=== PATIENT | male | born 1960 | race American Indian/Alaskan Native ===

== ENCOUNTER 2016-06-03 17:45 | Inpatient (IN) | payer BC ==
[2016-06-03] MEDS ORDERED: cefTRIAXone 1 gm 100 ML IVPB STA (18:46)
[2016-06-03] MEDS ORDERED: Azithromycin 500MG/NS 250ml 250 ML IVPB STA (18:46)
[2016-06-03 18:50] LABS: ADD MANUAL DIFF? NO; BASO # 0.01 K/mm3 (0.0-2.0); BASO % 0.1 % (0.0-3.0); GRAN # 11.56 (1.4-6.5); GRAN % 87.9 % (50.0-68.0); HEMATOCRIT 41.6 % (42.0-52.0); LYMPH # 0.8 (1.2-3.4); LYMPH % 5.7 % (22.0-35.0); MEAN CELL VOLUME 91.6 fL (80.0-105.0); MEAN CORPUSCULAR HEMOGLOBIN 32.2 pg (25.0-35.0); MEAN CORPUSCULAR HGB CONC 35.1 g/dl (31.0-37.0); MEAN PLATELET VOLUME 9.1 fl (7.0-11.0); MONO # 0.8 (0.1-0.6); MONO % 6.3 % (1.0-6.0); PLATELET COUNT 185 10^3/uL (120.0-450.0); RED CELL DISTRIBUTION WIDTH 13.6 % (11.5-14.5); WHITE BLOOD COUNT 13.2 10^3/ul (4.5-11.0)
[2016-06-03 18:54] LABS: VENOUS BLOOD GAS BASE EXCESS -0.2 mmol/L (0.0-2.0); VENOUS BLOOD PH 7.39 (7.32-7.43)
[2016-06-03 18:59] LABS: ALB/GLOB RATIO 1.1 (1.1-1.8); BILIRUBIN,TOTAL 0.5 mg/dL (0.2-1.3); CALCIUM 8.6 mg/dL (8.4-10.5); POTASSIUM 3.8 mmol/L (3.6-5.0); TOTAL PROTEIN 7.9 g/dL (5.8-8.3)
[2016-06-03 19:10] LABS: TROPONIN I 0.04 ng/mL
--- NOTE | 2016-06-03 19:10 | ED PDOC ---
Arrival/HPI - General Chief Complaint: Shortness Of Breath Time Seen by Provider: 06/03/16 17:56 Historian: Patient - History of Present Illness Narrative History of Present Illness (Text): 06/03/16 19:00 A 56 year old male presents to the emergency room complaining of a cough for the past 2 days. Patient notes clear phlegm. pt c/o of chest pain with coughing. subjective fevers at home PMD: Dr. Trevizo 06/03/16 20:17 Time/Duration: Other (2 days) Symptom Onset: Sudden Symptom Course: Unchanged Activities at Onset: Rest Modifying Factors (Text): none Context: Home Associated Symptoms (Text): none Past Medical History - Provider Review Nursing Documentation Reviewed: Yes - Past History Past History: No Previous - Infectious Disease Hx of Infectious Diseases: None - Tetanus Immunization Tetanus Immunization: Unknown - Cardiac Hx Cardiac Disorders: No - Pulmonary Hx Respiratory Disorders: No - Neurological Hx Neurological Disorder: No - HEENT Hx HEENT Disorder: No - Renal Hx Renal Disorder: No - Endocrine/Metabolic Hx Endocrine Disorders: No - Hematological/Oncological Hx Blood Disorders: No - Integumentary Hx Dermatological Disorder: No - Musculoskeletal/Rheumatological Hx Musculoskeletal Disorders: Yes Hx Arthritis: Yes Hx Falls: Yes - Gastrointestinal Hx Gastrointestinal Disorders: No - Genitourinary/Gynecological Hx Genitourinary Disorders: No - Psychiatric Hx Psychophysiologic Disorder: No Hx Substance Use: No - Past Surgical History Past Surgical History: Non-Contributing - Surgical History Other/Comment: Bilateral knee replacement. L shoulder - Anesthesia Hx Anesthesia: Yes Hx Anesthesia Reactions: No Hx Malignant Hyperthermia: No - Suicidal Assessment Feels Threatened In Home Enviroment: No Family/Social History - Physician Review Nursing Documentation Reviewed: Yes Family/Social History: No Known Family HX Smoking Status: Heavy Smoker > 10 Cigarettes Daily Hx Alcohol Use: Yes Hx Substance Use: No Hx Substance Use Treatment: No Allergies/Home Meds Allergies/Adverse Reactions: Allergies PORK Allergy (Verified 12/29/15 16:54) NAUSEA Review of Systems - Physician Review All systems were reviewed & negative as marked: Yes - Review of Systems Respiratory: Cough (painful), Other (phlegm) Cardiovascular: absent: Chest Pain Physical Exam Vital Signs Reviewed: Yes Vital Signs Temp Pulse Resp BP Pulse Ox 06/03/16 22:54 99.7 F H 84 18 136/74 92 L 06/03/16 21:00 88 20 133/59 L 96 06/03/16 19:12 102.2 F H 85 24 144/51 L 90 L 06/03/16 18:06 103.6 F H 90 24 143/52 L 90 L Temperature: Febrile Blood Pressure: Hypotensive Pulse: Regular Respiratory Rate: Normal Appearance: Positive for: Well-Appearing, Non-Toxic, Comfortable Pain Distress: None Mental Status: Positive for: Alert and Oriented X 3 - Systems Exam Head: Present: Atraumatic, Normocephalic Pupils: Present: PERRL Extroacular Muscles: Present: EOMI Conjunctiva: Present: Normal Mouth: Present: Moist Mucous Membranes Neck: Present: Normal Range of Motion Respiratory/Chest: Present: Clear to Auscultation, Good Air Exchange. No: Respiratory Distress, Accessory Muscle Use Cardiovascular: Present: Regular Rate and Rhythm, Normal S1, S2. No: Murmurs Abdomen: Present: Normal Bowel Sounds. No: Tenderness, Distention, Peritoneal Signs Upper Extremity: Present: Normal Inspection. No: Cyanosis, Edema Lower Extremity: Present: Normal Inspection. No: Edema Neurological: Present: GCS=15, CN II-XII Intact, Speech Normal Skin: Present: Warm, Dry, Normal Color. No: Rashes Psychiatric: Present: Alert, Oriented x 3, Normal Insight, Normal Concentration Medical Decision Making ED Course and Treatment: 06/03/16 19:11 Impression: 56 year old male with a cough. Differential Diagnosis included but are not limited to: r/o pna. Plan: -- EKG -- Labs -- Reassess and disposition Prior Visits: Notes and results from previous visits were reviewed. Progress Notes: EKG: Ordered, reviewed, and independently interpreted the EKG. Rate : 88 BPM Rhythm : NSR Interpretation : Non specific ST/T changes Comparison : Changes are new from EKG 12/31/15 06/03/16 20:13 Chest X-ray read by me shows bilateral infiltrates as read by me Dr. Echeverria covering for Dr. Trevizo accepts patient. 06/03/16 20:17 - Lab Interpretations Lab Results: 06/03/16 18:43 06/03/16 18:43 Lab Results 06/03/16 18:45: Influenza Typ A,B (EIA) Negative for flu a/b 06/03/16 18:43: WBC 13.2 H, RBC 4.54, Hgb 14.6, Hct 41.6 L, MCV 91.6, MCH 32.2, MCHC 35.1, RDW 13.6, Plt Count 185, MPV 9.1, Gran % 87.9 H, Lymph % (Auto) 5.7 L , [place] % (Auto) 6.3 H, Eos % (Auto) 0.0 L, Baso % (Auto) 0.1, Gran # 11.56 H, Lymph # 0.8 L, [place] # 0.8 H, Eos # 0.0, Baso # 0.01, Sodium 129 L, Potassium 3.8 , Chloride 96 L, Carbon Dioxide 24, Anion Gap 13, BUN 17, Creatinine 1.6 H, Est GFR ( Amer) 54, Est GFR (Non-Af Amer) 45, Random Glucose 115 H, Calcium 8.6, Total Bilirubin 0.5, AST 37, ALT 35, Alkaline Phosphatase 80, Lactate Dehydrogenase 711 H, Total Creatine Kinase 390 H, CK-MB (CK-2) 1.6, CK-MB (CK-2 ) % Cancelled, Troponin I 0.04, Total Protein 7.9, Albumin 4.2, Globulin 3.7, Albumin/Globulin Ratio 1.1 06/03/16 18:30: pO2 59 H, VBG pH 7.39, VBG pCO2 41.0, VBG HCO3 24.8, VBG Total CO2 26.1, VBG O2 Sat (Calc) 94.7 H, VBG Base Excess -0.2 L, VBG Potassium 3.7, Glucose 115 H, Lactate 0.9, FiO2 21.0, Sodium 130.0 L, Chloride 98.0, Venous Blood Potassium 3.7 I have reviewed the lab results: Yes - RAD Interpretation Radiology Orders: 06/03/16 18:46 CHEST PORTABLE [RAD] Stat - EKG Interpretation Interpreted by ED Physician: Yes Type: 12 lead EKG - Medication Orders Current Medication Orders: Acetaminophen (Tylenol 325mg Tab) 650 mg PO Q4H PRN PRN Reason: fever Last Admin: 06/04/16 09:41 Dose: 650 MG MAR Pain/Vitals Document 06/04/16 09:41 [facility] (Rec: 06/04/16 09:41 [facility] [id number]) Pain Reassessment Is This A Pain ReAssessment? No Vitals Temperature (97.6 F-99.6 F) 99.7 F Temperature Source Oral Acetaminophen (Tylenol 325mg Tab) 650 mg PO Q4H PRN PRN Reason: Pain, Mild (1-3) Albuterol/Ipratropium (Duoneb 3 Mg/0.5 Mg (3 Ml) Ud) 3 ml IH [id number] [facility] Last Admin: 06/04/16 07:39 Dose: 3 ML Famotidine (Pepcid) 40 mg PO HS [facility] Last Admin: 06/03/16 23:10 Dose: 40 MG Ceftriaxone Sodium (Rocephin 1 Gram Ivpb) 100 mls @ 100 mls/hr IVPB DAILY ALEX PRN Reason: Protocol Last Admin: 06/04/16 09:42 Dose: 100 MLS/HR eMAR Start Stop Document 06/04/16 09:42 [facility] (Rec: 06/04/16 09:42 [facility] [id number]) Intravenous Solution Start Date 06/04/16 Start Time 09:42 End Date 06/04/16 End time 09:42 Total Infusion Time 0 Azithromycin (Zithromax 500mg In Ns) 250 mls @ 167 mls/hr IVPB DAILY ALEX PRN Reason: Protocol Lisinopril (Zestril) 10 mg PO DAILY [facility] Last Admin: 06/04/16 09:38 Dose: Not Given Non-Admin Reason: BP Parameters Not Met MAR Pulse and Blood Pressure Document 06/04/16 09:38 [facility] (Rec: 06/04/16 09:38 [facility] [id number]) Pulse Pulse Rate (60-90) 62 Blood Pressure Blood Pressure (100/60-150/90) 96/67 Discontinued Medications Acetaminophen (Tylenol 325mg Tab) Confirm Administered Dose 975 mg .ROUTE .STK- MED ONE Stop: 06/03/16 18:47 Last Admin: 06/03/16 18:50 Dose: 975 MG Acetaminophen (Tylenol 325mg Tab) 650 mg PO Q4H PRN PRN Reason: Pain, moderate (4-7) Azithromycin (Zithromax 500mg In Ns) 250 mls @ 167 mls/hr IVPB STAT STA PRN Reason: Protocol Stop: 06/03/16 20:15 Last Admin: 06/03/16 20:03 Dose: 167 MLS/HR eMAR Start Stop Document 06/03/16 20:03 [facility] (Rec: 06/03/16 20:03 EBON[facility] [id number]) Intravenous Solution Start Date 06/03/16 Start Time 20:03 End Date 06/03/16 End time 21:03 Total Infusion Time 60 Ceftriaxone Sodium (Rocephin 1 Gram Ivpb) 100 mls @ 200 mls/hr IVPB STAT STA PRN Reason: Protocol Stop: 06/03/16 19:15 Last Admin: 06/03/16 19:15 Dose: 200 MLS/HR eMAR Start Stop Document 06/03/16 19:15 SRE (Rec: 06/03/16 19:15 SRE [id number]) Intravenous Solution Start Date 06/03/16 Start Time 19:15 End Date 06/03/16 End time 20:00 Total Infusion Time 45 - Scribe Statement The provider has reviewed the documentation as recorded by the Raul Clifton training under Best Liu All medical record entries made by the Raul were at my direction and personally dictated by me. I have reviewed the chart and agree that the record accurately reflects my personal performance of the history, physical exam, medical decision making, and the department course for this patient. I have also personally directed, reviewed, and agree with the discharge instructions and disposition. Disposition/Present on Arrival - Present on Arrival Any Indicators Present on Arrival: No History of DVT/PE: No History of Uncontrolled Diabetes: No Urinary Catheter: No History of Decub. Ulcer: No History Surgical Site Infection Following: None - Disposition Have Diagnosis and Disposition been Completed?: Yes Diagnosis: Pneumonia Disposition: HOSPITALIZED Disposition Time: 20:17 Patient Problems: Current Active Problems Problem Status Diagnosed Pain and swelling of right wrist Acute Pneumonia Acute Swelling of joint, hand, right Acute Condition: FAIR
[2016-06-04] MEDS: Albuterol-Ipratrop 3 mg / 0.5 (3 ml) UD IH SCH ×3 (02:32→19:42)
[2016-06-04 02:55] VITALS: BMI 329959.7
[2016-06-04 07:10] LABS: CALCIUM 8.4 mg/dL (8.4-10.5); MEAN CELL VOLUME 91.5 fL (80.0-105.0); MEAN CORPUSCULAR HEMOGLOBIN 31.7 pg (25.0-35.0); MEAN CORPUSCULAR HGB CONC 34.6 g/dl (31.0-37.0); MEAN PLATELET VOLUME 8.9 fl (7.0-11.0); POTASSIUM 3.6 mmol/L (3.6-5.0); RED CELL DISTRIBUTION WIDTH 13.8 % (11.5-14.5)
[2016-06-04] MEDS: cefTRIAXone 1 gm 100 ML IVPB SCH (09:42)
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
--- NOTE | 2016-06-04 10:49 | CARD ---
APPROVED REPORT EKG Measurement Heart [id number] NM [id number] <Conclusion> Normal sinus rhythm Incomplete right bundle branch block Left anterior fascicular block Minimal voltage criteria for LVH, may be normal variant Nonspecific T wave abnormality Abnormal ECG
[2016-06-04] MEDS: Azithromycin 500MG/NS 250ml 250 ML IVPB SCH (11:00)
[2016-06-04] MEDS ORDERED: Promethazine DM 6.25 mg-15 mg/5 ml Syrup PO STA (14:00)
[2016-06-04] MEDS ORDERED: Benzocaine/Menthol (Cepacol) Lozenge MT PRN (20:14)
--- NOTE | 2016-06-04 20:40 | CP.PCM.CON ---
History of Present Illness - History of Present Illness History of Present Illness: Infectious Disease Consultation: June 04, 2016 56 yo AA male with presentation of SOB and worsening cough. Subjective fevers and chills at home. He complains of lower chest and back pain. Chest X-ray is displaying pneumonic process in the bilateral lower lobes. He is ambulatory. He is an active tobacco user at 1 PPD. His temperatures have been as high as 103.6 F. He does state that he feels better since hospitalized. PMHx: Patient states only history of arthritis. Denies Hypertension and Diabetes Mellitus PSHx: bilateral knee replacements Allergies: Pork Social Hx: Tobacco use 1 PPD over 20 years, Social EtOH, no illicit drugs Active Medications Acetaminophen (Tylenol 325mg Tab) 650 mg PO Q4H PRN PRN Reason: fever Last Admin: 06/04/16 17:39 Dose: 650 mg Acetaminophen (Tylenol 325mg Tab) 650 mg PO Q4H PRN PRN Reason: Pain, Mild (1-3) Albuterol/Ipratropium (Duoneb 3 Mg/0.5 Mg (3 Ml) Ud) 3 ml IH [id number] [facility] Last Admin: 06/04/16 19:42 Dose: 3 ml Benzocaine/Menthol (Cepacol Sore Throat) 1 rashel MT Q2H PRN PRN Reason: Sore Throat Famotidine (Pepcid) 40 mg PO HS [facility] Last Admin: 06/03/16 23:10 Dose: 40 mg Ceftriaxone Sodium (Rocephin 1 Gram Ivpb) 100 mls @ 100 mls/hr IVPB DAILY [facility] PRN Reason: Protocol Last Admin: 06/04/16 09:42 Dose: 100 mls/hr Azithromycin (Zithromax 500mg In Ns) 250 mls @ 167 mls/hr IVPB DAILY ALEX PRN Reason: Protocol Last Admin: 06/04/16 11:00 Dose: 167 mls/hr Lisinopril (Zestril) 10 mg PO DAILY [facility] Last Admin: 06/04/16 09:38 Dose: Not Given Methylprednisolone (Solu-Medrol) 20 mg IVP Q12 [facility] Nicotine (Nicoderm Cq) 1 patch TD DAILY [facility] Last Admin: 06/04/16 14:21 Dose: 1 patch Promethazine HCl/Dextromethorphan (Phenergan Dm Syrup) 5 ml PO TID PRN PRN Reason: Cough Family Hx: none given ROS: No fevers, chills, nausea, vomiting, diarrhea, headaches, dizziness, chest pain , abdominal pain, melena, hematuria, hematemesis, hematochezia, depression, anxiety. Past Patient History - Infectious Disease Hx of Infectious Diseases: None - Tetanus Immunizations Tetanus Immunization: Unknown - Past Social History Smoking Status: Heavy Smoker > 10 Cigarettes Daily - CARDIAC Hx Cardiac Disorders: No - PULMONARY Hx Respiratory Disorders: No - NEUROLOGICAL Hx Neurological Disorder: No - HEENT Hx HEENT Problems: No - RENAL Hx Chronic Kidney Disease: No - ENDOCRINE/METABOLIC Hx Endocrine Disorders: No - HEMATOLOGICAL/ONCOLOGICAL Hx Blood Disorders: No - INTEGUMENTARY Hx Dermatological Problems: No - MUSCULOSKELETAL/RHEUMATOLOGICAL Hx Musculoskeletal Disorders: Yes Hx Arthritis: Yes Hx Falls: Yes - GASTROINTESTINAL Hx Gastrointestinal Disorders: No - GENITOURINARY/GYNECOLOGICAL Hx Genitourinary Disorders: No - PSYCHIATRIC Hx Psychophysiologic Disorder: No Hx Substance Use: No - SURGICAL HISTORY Other/Comment: Bilateral knee replacement. L shoulder - ANESTHESIA Hx Anesthesia: Yes Hx Anesthesia Reactions: No Hx Malignant Hyperthermia: No Meds Allergies/Adverse Reactions: Allergies Allergy/AdvReac Type Severity Reaction Status Date / Time PORK Allergy NAUSEA Verified 12/29/15 16:54 - Medications Medications: Current Medications Acetaminophen (Tylenol 325mg Tab) 650 mg PO Q4H PRN PRN Reason: fever Last Admin: 06/04/16 17:39 Dose: 650 mg Acetaminophen (Tylenol 325mg Tab) 650 mg PO Q4H PRN PRN Reason: Pain, Mild (1-3) Albuterol/Ipratropium (Duoneb 3 Mg/0.5 Mg (3 Ml) Ud) 3 ml IH [id number] [facility] Last Admin: 06/04/16 07:39 Dose: 3 ml Famotidine (Pepcid) 40 mg PO HS [facility] Last Admin: 06/03/16 23:10 Dose: 40 mg Ceftriaxone Sodium (Rocephin 1 Gram Ivpb) 100 mls @ 100 mls/hr IVPB DAILY ALEX PRN Reason: Protocol Last Admin: 06/04/16 09:42 Dose: 100 mls/hr Azithromycin (Zithromax 500mg In Ns) 250 mls @ 167 mls/hr IVPB DAILY ALEX PRN Reason: Protocol Last Admin: 06/04/16 11:00 Dose: 167 mls/hr Lisinopril (Zestril) 10 mg PO DAILY [facility] Last Admin: 06/04/16 09:38 Dose: Not Given Nicotine (Nicoderm Cq) 1 patch TD DAILY [facility] Last Admin: 06/04/16 14:21 Dose: 1 patch Promethazine HCl/Dextromethorphan (Phenergan Dm Syrup) 5 ml PO TID PRN PRN Reason: Cough Physical Exam - Constitutional Appears: Non-toxic, No Acute Distress - Head Exam Head Exam: ATRAUMATIC, NORMOCEPHALIC - Eye Exam Eye Exam: EOMI, PERRL Pupil Exam: NORMAL ACCOMODATION, PERRL - ENT Exam ENT Exam: Mucous Membranes Moist, Normal External Ear Exam, TM's Normal Bilaterally - Neck Exam Neck exam: Positive for: Full Rom, Normal Inspection - Respiratory Exam Respiratory Exam: Decreased Breath Sounds, NORMAL BREATHING PATTERN. absent: Rales, Rhonchi, Wheezes Additional comments: decreased breath sounds diffusely in lung worst in lower lung. - Cardiovascular Exam Cardiovascular Exam: REGULAR RHYTHM, RRR, +S1, +S2 - GI/Abdominal Exam GI & Abdominal Exam: Normal Bowel Sounds, Soft. absent: Distended, Tenderness - Extremities Exam Extremities exam: Positive for: full ROM, normal inspection - Neurological Exam Neurological exam: Alert, CN II-XII Intact, Oriented x3 - Psychiatric Exam Psychiatric exam: Normal Affect, Normal Mood - Skin Skin Exam: Intact, Normal Color Results - Vital Signs Recent Vital Signs: Last Vital Signs Temp 102.2 F H 06/04/16 17:39 Pulse 65 06/04/16 14:00 Resp 18 06/04/16 11:52 BP 115/70 06/04/16 11:52 Pulse Ox 100 06/04/16 05:58 - Labs Result Diagrams: 06/04/16 06:20 06/04/16 06:20 Labs: Laboratory Results - last 24 hr 06/04/16 06:20 WBC 11.0 RBC 4.48 Hgb 14.2 Hct 41.0 L MCV 91.5 MCH 31.7 MCHC 34.6 RDW 13.8 Plt Count 177 MPV 8.9 Sodium 137 Potassium 3.6 Chloride 101 Carbon Dioxide 27 Anion Gap 13 BUN 19 Creatinine 1.6 H Est GFR ( Amer) 54 Est GFR (Non-Af Amer) 45 Random Glucose 101 Calcium 8.4 TSH 3rd Generation 2.76 Assessment & Plan - Assessment and Plan (Free Text) Assessment: 56 yo AA male with cough and high grade fevers started on Rocephin and Azithromycin for antibiotic treatment. The patient has signs of pneumonia in the bases bilaterally. He is complaining of lower chest pain and mid level back pain especially after fits of coughing. The patient had cultures sent. Would sent sputum cultures as well. If fevers persist, will escalate antibiotics to Vancomycin and Zosyn over Rocephin. Thank you for allowing me to participate in the care of the patient, we will follow with you.
[2016-06-04] MEDS: MethylPREDNISolone 40 mg Vial IVP SCH (21:01)
--- NOTE | 2016-06-04 21:03 | CON ---
DATE: 06/04/2016 REFERRING PHYSICIAN: Dr. Echeverria. REASON FOR CONSULT: Pulmonary infiltrate, cough, shortness of breath, loud snoring. HISTORY OF PRESENT ILLNESS: This is a 56-year-old gentleman with past medical history significant fo r hypertension, obesity, history of degenerative joint disease, active smoker, presented to Emergency Room with cough, shortness of breath. Found to have abnormal chest x-ray, treated with antibiotics and bronchodilators. Feels a little better. He admits to have loud snoring, daytime sleepy and tire d. No nausea, no vomiting, no diarrhea. No leg pain or leg swelling. PAST MEDICAL HISTORY: Hypertension, history of degenerative joint disease, and obesity. ALLERGIES: None known, other than food allergy from pork. SOCIAL HISTORY: He is a smoker. Denied any alcohol use. FAMILY HISTORY: No significant cardiopulmonary disease reported. MEDICATIONS: He is on DuoNeb q. 6 hours, NicoDerm patch daily, Pepcid 40 mg daily, promethazine DM 3 times a day p.r.n., Rocephin 1 g daily, Tylenol p.r.n. basis, Zestril 10 mg daily, Zithromax 500 mg daily. REVIEW OF SYSTEMS: No headache, no rhinitis. Has a cough, shortness of breath, and sore throat. No nausea, no vomiting. No diarrhea. No leg pain or leg swelling. Has loud snoring, daytime sleepy a nd tired. PHYSICAL EXAMINATION: Sitting up in a chair. T-max is 102, heart rate 65, respiratory rate is 20, blood pressure 115/60, pulse ox 99% on room air. HENT: Moist mucous membranes. Crowded airway. Mallampati score is 4. NECK: Supple. No JVD. LUNGS: Has a base with some crackles. Prolonged expiratory phase. HEART: S1 and S2. ABDOMEN: Soft, nontender. No organomegaly. EXTREMITIES: No edema. NEUROLOGICALLY: Awake, alert. Follows simple commands. Laboratory data shows hemoglobin 14.2, hematocrit 41.0, WBC 11.0, platelet is 177. MICROBIOLOGY: Blood culture has been negative. Chest x-ray done from ER shows bibasilar infiltrate suspicious for pneumonia. IMPRESSION AND PLAN: Community-acquired pneumonia with some component of chronic obstructive lung di sease, history of hypertension, obesity, may have a sleep apnea syndrome. Agree with Dr. Echeverria with the present management. Continue antibiotics, inhaled bronchodilator. Ke ep head 45 degrees. Sleep apnea precaution. Careful with sedation. Gastric prophylaxis. DVT proph ylaxis. Will add Cepacol lozenges, Nicoderm patch. Will need PFT as outpatient, and attended sleep study as outpatient. Thank you, and will follow with you. Brianne Savage MD cc: [id number] TT: 06/04/2016 21:02:59 Confirmation # [id number] Dictation # [id number]
[2016-06-04] MEDS: Promethazine DM 6.25 mg-15 mg/5 ml Syrup PO PRN (22:06)
--- NOTE | 2016-06-05 08:06 | HP ---
CHIEF COMPLAINT: Shortness of breath, coughing. HISTORY OF PRESENT ILLNESS: The patient is a 56-year-old male, private doctor Dr. Gustavo Trevizo. Came to the Emergency Room complaining about coughing for the past 2 days. The patient noticed clear phlegm. The patient complained of chest pain with coughing, subjective feverish feeling at home. No nausea, vomiting, diarrhea. No headache, no dizziness. No hematuria, no hematochezia. No chest pain. PAST MEDICAL HISTORY: Arthritis, fall, bilateral knee replacement, left shoulder replacement. FAMILY HISTORY: Father and mother noncontributory. HABITS: Heavy smoker, 1 pack per day. Alcohol, yes. Substance abuse, no. ALLERGIES: PORK ALLERGY, FEELING NAUSEOUS. REVIEW OF SYSTEMS: The patient is seen and examined on the bedside in the telemetry, was coughing, asking about cough medication, was asking about a nicotine patch. Nicotine patch was provided. No fever, no chills, no diarrhea , no constipation, no ataxia. No hematuria, no hematochezia. PHYSICAL EXAMINATION: VITAL SIGNS: Temperature 99.1, T-max of 102.2, pulse 71, blood pressure 120/66 , respiratory rate 20. HEENT: Head normocephalic, atraumatic. Eyes: PERRLA. Extraocular muscles intact. Conjunctivae pink. Eyelids unremarkable. Nose patent. Mucous membranes moist. NECK: Supple. No carotid bruit, no JVD, no thyromegaly. CHEST: Bilaterally symmetrical. HEART: S1, S2 positive. LUNGS: Positive wheezing bilaterally. ABDOMEN: Soft. Bowel sounds positive. No organomegaly. EXTREMITIES: No edema, no cyanosis. NEUROLOGIC: The patient is awake, alert, moving all 4 extremities. LABORATORIES: White blood cells on admission was 13.2, today is 11.0, hemoglobin 14.2, hematocrit 41.0, platelets 177. Sodium on admission was 129, today is 137, potassium 3.6, BUN 19, creatinine 1.6. ASSESSMENT AND PLAN: The patient is a 56-year-old male with leukocytosis, hyponatremia, hypochloremia, hyperglycemia. Influenza test was negative. Seen by Dr. Savage, applied behavior specialist. History of hypertension, degenerative joint disease, obesity, has community-acquired pneumonia with some component of chronic obstructive lung disease, sleep apnea syndrome. Started patient on antibiotics, inhaled bronchodilators. Sleep apnea precautions. Nicotine patch given. Phenergan without codeine started. Gastric and deep vein thrombosis prophylaxis. Dr. Savage added Cepacol lozenges. Needs a PFT as outpatient, attended sleep study as outpatient. Seen by Dr. Reyes, infectious disease. The patient has high-grade fever, is getting Rocephin and azithromycin. The patient is complaining of lower chest pain and mid, low back pain, especially after bouts of coughing. Cultures are sent, still awaiting. If fevers persist , will escalate antibiotics to vancomycin and Zosyn over Rocephin. Discussion done with patient's nurse and nurse practitioner, Felicita. We will follow up. Irma Echeverria MD cc: [id number] TT: 06/05/2016 07:46:03 en MTDD
[2016-06-05] MEDS: Albuterol-Ipratrop 3 mg / 0.5 (3 ml) UD IH SCH ×3 (08:18→19:31)
[2016-06-05] MEDS: MethylPREDNISolone 40 mg Vial IVP SCH ×2 (09:49→21:25)
[2016-06-05] MEDS: cefTRIAXone 1 gm 100 ML IVPB SCH (09:49)
[2016-06-05] MEDS: Azithromycin 500MG/NS 250ml 250 ML IVPB SCH (09:49)
[2016-06-05] MEDS: HYDROmorphone 0.5 mg/0.5 ml ISec IVP PRN ×3 (11:51→23:43)
--- NOTE | 2016-06-05 14:14 | PN ---
DATE: 06/05/2016 REFERRING PHYSICIAN: Dr. Echeverria. SUBJECTIVE: He is out of bed to chair, feels better, decreased cough, decreased shortness breath. N o nausea, vomiting, diarrhea. No leg pain or leg swelling. OBJECTIVE: GENERAL: No acute distress. VITAL SIGNS: Temperature is 99, heart rate is 73, respiratory rate is 20, blood pressure 130/92, pul se ox 98% on 2 liters nasal cannula. HEENT: Moist mucous membranes. Crowded airway. Mallampati score is 4. NECK: Supple, no JVD. LUNGS: A few crackles in the bases, scattered rhonchi. HEART: S1, S2. ABDOMEN: Soft, nontender. No organomegaly. EXTREMITIES: No edema. NEUROLOGIC: Awake, alert, follows simple commands. MEDICATIONS: He is on Cepacol lozenges q. 12 hours p.r.n., Dilaudid 0.5 mg q. 6 hours p.r.n., DuoNeb q. 6 hours, NicoDerm patch daily, Pepcid 40 mg daily, also on promethazine syrup DM 5 mL q. 8 hours p.r.n., Rocephin 1 g IV daily, Solu-Medrol 20 mg q. 12 hours, Tylenol on a p.r.n. basis, Ultram 50 mg 3 times a day p.r.n. for pain, Zestril 10 mg daily, Zithromax 500 mg daily. LABORATORY DATA: Reviewed. No new lab is available since yesterday. IMPRESSION AND PLAN: Community-acquired pneumonia, may be component of chronic obstructive lung dise ase, hypertension, obesity, may have sleep apnea syndrome. We will continue antibiotics, IV and inha led bronchodilators. Gastric prophylaxis. Deep venous thrombosis prophylaxis. Sleep apnea precauti ons. Will need attended sleep study and PFT as outpatient. The patient is urged to stop smoking. W e will follow with you. Brianne Savage MD cc: [id number] TT: 06/05/2016 14:13:39 Confirmation # [id number] Dictation # [id number]
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
--- NOTE | 2016-06-05 17:04 | CP.PCM.PN ---
Subjective - Date & Time of Evaluation Date of Evaluation: 06/05/16 Time of Evaluation: 15:30 - Subjective Subjective: Infectious Disease Follow Up: June 05, 2016 56 yo AA male with presentation of SOB and worsening cough. Subjective fevers and chills at home. He complains of lower chest and back pain. Chest X-ray is displaying pneumonic process in the bilateral lower lobes. He is ambulatory. He is an active tobacco user at 1 PPD. His temperatures have been as high as 103.6 F. He does state that he feels better since hospitalized but his major complaints are based around low back pains. Unclear to me if this is secondary to a chronic low back pain versus the current pneumonia. He appears to have less SOB compared to yesterday. Objective - Vital Signs/Intake and Output Vital Signs (last 24 hours): Temp Pulse Resp BP Pulse Ox 99.2 F 73 18 130/92 H 98 06/05/16 11:56 06/05/16 11:56 06/05/16 11:56 06/05/16 11:56 06/05/16 05:20 Intake and Output: 06/05/16 06/05/16 06:59 18:59 Intake Total 1500 Output Total 3275 Balance -1775 - Medications Medications: Current Medications Acetaminophen (Tylenol 325mg Tab) 650 mg PO Q4H PRN PRN Reason: fever Last Admin: 06/04/16 17:39 Dose: 650 mg Acetaminophen (Tylenol 325mg Tab) 650 mg PO Q4H PRN PRN Reason: Pain, Mild (1-3) Last Admin: 06/04/16 22:05 Dose: 650 mg Albuterol/Ipratropium (Duoneb 3 Mg/0.5 Mg (3 Ml) Ud) 3 ml IH [id number] ALEX Last Admin: 06/05/16 13:40 Dose: 3 ml Benzocaine/Menthol (Cepacol Sore Throat) 1 rashel MT Q2H PRN PRN Reason: Sore Throat Famotidine (Pepcid) 40 mg PO HS ALEX Last Admin: 06/04/16 21:01 Dose: 40 mg Hydromorphone HCl (Dilaudid) 0.5 mg IVP Q6H PRN PRN Reason: Pain, moderate (4-7) Last Admin: 06/05/16 11:51 Dose: 0.5 mg Ceftriaxone Sodium (Rocephin 1 Gram Ivpb) 100 mls @ 100 mls/hr IVPB DAILY [facility] PRN Reason: Protocol Last Admin: 06/05/16 09:49 Dose: 100 mls/hr Azithromycin (Zithromax 500mg In Ns) 250 mls @ 167 mls/hr IVPB DAILY [facility] PRN Reason: Protocol Last Admin: 06/05/16 09:49 Dose: 167 mls/hr Lisinopril (Zestril) 10 mg PO DAILY [facility] Last Admin: 06/05/16 09:50 Dose: 10 mg Methylprednisolone (Solu-Medrol) 20 mg IVP Q12 ALEX Last Admin: 06/05/16 09:49 Dose: 20 mg Nicotine (Nicoderm Cq) 1 patch TD DAILY [facility] Last Admin: 06/05/16 09:48 Dose: 1 patch Promethazine HCl/Dextromethorphan (Phenergan Dm Syrup) 5 ml PO TID PRN PRN Reason: Cough Last Admin: 06/04/16 22:06 Dose: 5 ml Tramadol HCl (Ultram) 50 mg PO TID PRN PRN Reason: Pain, moderate (4-7) Last Admin: 06/05/16 08:05 Dose: 50 mg - Labs Labs: 06/04/16 06:20 06/04/16 06:20 - Constitutional Appears: Non-toxic, No Acute Distress - Head Exam Head Exam: ATRAUMATIC, NORMOCEPHALIC - Eye Exam Eye Exam: EOMI, PERRL Pupil Exam: NORMAL ACCOMODATION, PERRL - ENT Exam ENT Exam: Mucous Membranes Moist, Normal External Ear Exam, TM's Normal Bilaterally - Neck Exam Neck Exam: Full ROM, Normal Inspection - Respiratory Exam Respiratory Exam: Decreased Breath Sounds, NORMAL BREATHING PATTERN. absent: Rales, Rhonchi, Wheezes Additional comments: decreased breath sounds diffusely in lung worst in lower lung. - Cardiovascular Exam Cardiovascular Exam: REGULAR RHYTHM, RRR, +S1, +S2 - GI/Abdominal Exam GI & Abdominal Exam: Soft, Normal Bowel Sounds. absent: Distended, Tenderness - Extremities Exam Extremities Exam: Full ROM, Normal Inspection - Neurological Exam Neurological Exam: Alert, Awake, CN II-XII Intact, Oriented x3 - Psychiatric Exam Psychiatric exam: Normal Affect, Normal Mood - Skin Skin Exam: Intact, Normal Color Assessment and Plan - Assessment and Plan (Free Text) Assessment: 56 yo AA male with cough and high grade fevers started on Rocephin and Azithromycin for antibiotic treatment. The patient has signs of pneumonia in the bases bilaterally. He is complaining of lower chest pain and mid level back pain especially after fits of coughing. The patient had cultures sent. Would sent sputum cultures as well. Afebrile today. Continuing treatment for Community Acquired Pneumonia. Patient primary complaint is of back pain now. Thank you for allowing me to participate in the care of the patient, we will follow with you.
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
[2016-06-06] MEDS: Albuterol-Ipratrop 3 mg / 0.5 (3 ml) UD IH SCH ×6 (01:15→22:11)
[2016-06-06] MEDS: Promethazine DM 6.25 mg-15 mg/5 ml Syrup PO PRN ×2 (02:28→16:49)
[2016-06-06 07:58] LABS: HEMATOCRIT 40.7 % (42.0-52.0); MEAN CELL VOLUME 92.1 fL (80.0-105.0); MEAN CORPUSCULAR HEMOGLOBIN 31.4 pg (25.0-35.0); MEAN CORPUSCULAR HGB CONC 34.2 g/dl (31.0-37.0); MEAN PLATELET VOLUME 9.6 fl (7.0-11.0); RED CELL DISTRIBUTION WIDTH 13.7 % (11.5-14.5); WHITE BLOOD COUNT 10.3 10^3/ul (4.5-11.0)
[2016-06-06 08:18] LABS: ALB/GLOB RATIO 1.1 (1.1-1.8); ALKALINE PHOSPHATASE 76 U/L (38-133); ALT/SGPT 32 U/L (7-56); AST/SGOT 37 U/L (15-59); BILIRUBIN,TOTAL 0.3 mg/dL (0.2-1.3); BLOOD UREA NITROGEN 15 mg/dL (7-21); CARBON DIOXIDE 27 mmol/L (21-33); CHLORIDE 101 mmol/L (95-110); GFR AFRICAN-AMERICAN > 60; GLUCOSE,RANDOM 167 mg/dL (70-110); POTASSIUM 4.8 mmol/L (3.6-5.0); SODIUM 136 mmol/L (132-148); TOTAL PROTEIN 7.3 g/dL (5.8-8.3)
[2016-06-06] MEDS: cefTRIAXone 1 gm 100 ML IVPB SCH (09:15)
[2016-06-06] MEDS: HYDROmorphone 0.5 mg/0.5 ml ISec IVP PRN ×3 (09:15→20:24)
[2016-06-06] MEDS: Azithromycin 500MG/NS 250ml 250 ML IVPB SCH (09:16)
[2016-06-06] MEDS: MethylPREDNISolone 40 mg Vial IVP SCH (10:00)
--- NOTE | 2016-06-06 13:18 | CT ---
PROCEDURE: CT scan lumbar spine dated 06/06/2016 HISTORY: lower back pain COMPARISON: None. TECHNIQUE: Axial computed tomography images were obtained of the lumbar spine without the use of intravenous contrast. Coronal and sagittal reformatted images were created and [id number]. Radiation dose: Total exam DLP = 1175.37 mGy-cm. This CT exam was performed using one or more of the following dose reduction techniques: Automated exposure control, adjustment of the mA and/or kV according to patient size, and/or use of iterative reconstruction technique. FINDINGS: VERTEBRAE: No acute compression fractures nor retropulsed fragments. Multilevel chronic appearing Schmorl's nodes and degenerative endplate changes are present. Vertebral bodies otherwise exhibit relatively normal stature. There is slight straightening of the normal lumbar lordosis however vertebral bodies otherwise exhibit normal alignment. Facets normally aligned. DISCS/SPINAL CANAL/NEURAL FORAMINA: Multilevel degenerative spondylosis. 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 Changes include varying degrees of mild disc space narrowing with chronic appearing Schmorl's nodes and degenerative endplate changes. Multilevel small posterior osteophytic ridge disc bulge complexes are present. The facet joints also mildly hypertrophic. At the L4-L5 level, there is mild disc space narrowing with intradiscal calcification and small broad-based disc bulge ridge complex. . Small amount of vacuum phenomena is present There is moderate -significant bilateral lateral recess and moderate central canal stenosis. Canal stenosis. Exit foramina appear narrowed on the right and adequate on the left. At the L3-L4 level, there is also disc space narrowing with small amount of vacuum disc phenomena and small broad-based disc bulge ridge complex that results in some flattening of the ventral surface of thecal sac. Central canal is slightly narrowed. The facet joints are mildly overgrown. Exit foramina are narrowed bilaterally left greater than right. At the L2-L3 level, there is also disc space narrowing with tiny amount of vacuum disc phenomena and small broad-based disc bulge ridge complex. Slight flattening of the ventral surface of the thecal sac however the overall central canal appears adequate. Left exit foramen is mildly narrowed. At the L five S1 level, there is disc space narrowing with small amount of vacuum disc phenomena and small broad-based disc bulge ridge complex. Facet joints are slightly overgrown. Central canal is mildly narrowed though commensurate with the small size of the sacral thecal sac. PARASPINAL SOFT TISSUES: Unremarkable. OTHER FINDINGS: Note made of mild hepatomegaly. Small approximately 15.8 mm rounded low-attenuation focus posterior aspect upper pole right kidney probably represents a small cyst. Mild cardiomegaly. IMPRESSION: Multilevel degenerative spondylosis most notably affecting the L4-L5 and L3-L4 levels as detailed above. 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 . No evidence of acute compression fractures no retropulsed fragments. Findings also suggest hepatomegaly . Probable small cyst right kidney. Mild cardiomegaly.
[2016-06-06] MEDS ORDERED: Oxycodone/Acetaminophen 5/325 mg Tab PO PRN (14:36)
--- NOTE | 2016-06-06 17:00 | CP.PCM.PN ---
Subjective - Date & Time of Evaluation Date of Evaluation: 06/06/16 Time of Evaluation: 15:45 - Subjective Subjective: Infectious Disease Follow Up: June 06, 2016 56 yo AA male with presentation of SOB and worsening cough. Subjective fevers and chills at home. He complains of lower chest and back pain. Chest X-ray is displaying pneumonic process in the bilateral lower lobes. He is ambulatory. He is an active tobacco user at 1 PPD. His temperatures have been as high as 103.6 F. He does state that he feels better since hospitalized but his major complaints are based around low back pains. Unclear to me if this is secondary to a chronic low back pain versus the current pneumonia. He appears to have less SOB compared to yesterday. The patient complains of low back pain. Objective - Vital Signs/Intake and Output Vital Signs (last 24 hours): Temp Pulse Resp BP Pulse Ox 98.5 F 55 L 20 159/85 H 98 06/06/16 12:00 06/06/16 12:00 06/06/16 12:00 06/06/16 12:00 06/06/16 05:43 Intake and Output: 06/06/16 06/06/16 06:59 18:59 Intake Total 1260 Output Total 1475 Balance -215 - Medications Medications: Current Medications Acetaminophen (Tylenol 325mg Tab) 650 mg PO Q4H PRN PRN Reason: fever Last Admin: 06/06/16 12:42 Dose: 650 mg Acetaminophen (Tylenol 325mg Tab) 650 mg PO Q4H PRN PRN Reason: Pain, Mild (1-3) Last Admin: 06/04/16 22:05 Dose: 650 mg Albuterol/Ipratropium (Duoneb 3 Mg/0.5 Mg (3 Ml) Ud) 3 ml IH [id number] ALEX Last Admin: 06/06/16 13:11 Dose: 3 ml Benzocaine/Menthol (Cepacol Sore Throat) 1 rashel MT Q2H PRN PRN Reason: Sore Throat Famotidine (Pepcid) 40 mg PO HS ALEX Last Admin: 06/05/16 21:26 Dose: 40 mg Hydromorphone HCl (Dilaudid) 0.5 mg IVP Q6H PRN PRN Reason: Pain, moderate (4-7) Last Admin: 06/06/16 14:19 Dose: 0.5 mg Ceftriaxone Sodium (Rocephin 1 Gram Ivpb) 100 mls @ 100 mls/hr IVPB DAILY [facility] PRN Reason: Protocol Last Admin: 06/06/16 09:15 Dose: 100 mls/hr Azithromycin (Zithromax 500mg In Ns) 250 mls @ 167 mls/hr IVPB DAILY [facility] PRN Reason: Protocol Last Admin: 06/06/16 09:16 Dose: 167 mls/hr Lisinopril (Zestril) 10 mg PO DAILY [facility] Last Admin: 06/06/16 09:16 Dose: 10 mg Methylprednisolone (Solu-Medrol) 20 mg IVP Q12 [facility] Last Admin: 06/06/16 10:00 Dose: 20 mg Nicotine (Nicoderm Cq) 1 patch TD DAILY [facility] Last Admin: 06/06/16 09:15 Dose: 1 patch Oxycodone/Acetaminophen (Percocet 5/325 Mg Tab) 1 tab PO BID PRN PRN Reason: Pain, moderate (4-7) Stop: 06/09/16 14:37 Promethazine HCl/Dextromethorphan (Phenergan Dm Syrup) 5 ml PO TID PRN PRN Reason: Cough Last Admin: 06/06/16 02:28 Dose: 5 ml Tramadol HCl (Ultram) 50 mg PO TID PRN PRN Reason: Pain, moderate (4-7) Last Admin: 06/06/16 09:16 Dose: 50 mg - Labs Labs: 06/06/16 07:41 06/06/16 07:41 - Constitutional Appears: Non-toxic, No Acute Distress, Chronically Ill - Head Exam Head Exam: ATRAUMATIC, NORMOCEPHALIC - Eye Exam Eye Exam: EOMI, PERRL Pupil Exam: NORMAL ACCOMODATION, PERRL - ENT Exam ENT Exam: Mucous Membranes Moist, Normal External Ear Exam, TM's Normal Bilaterally - Neck Exam Neck Exam: Full ROM, Normal Inspection - Respiratory Exam Respiratory Exam: Clear to Ausculation Bilateral, NORMAL BREATHING PATTERN. absent: Rales, Rhonchi, Wheezes - Cardiovascular Exam Cardiovascular Exam: REGULAR RHYTHM, RRR, +S1, +S2 - GI/Abdominal Exam GI & Abdominal Exam: Soft, Normal Bowel Sounds. absent: Distended, Tenderness - Extremities Exam Extremities Exam: Full ROM, Normal Inspection - Neurological Exam Neurological Exam: Alert, Awake, CN II-XII Intact, Oriented x3 - Psychiatric Exam Psychiatric exam: Normal Affect, Normal Mood - Skin Skin Exam: Intact, Normal Color Assessment and Plan - Assessment and Plan (Free Text) Assessment: 56 yo AA male with cough and high grade fevers started on Rocephin and Azithromycin for antibiotic treatment. The patient has signs of pneumonia in the bases bilaterally. He is complaining of lower chest pain and mid level back pain especially after fits of coughing. The patient had cultures sent. Would sent sputum cultures as well. Afebrile today. Continuing treatment for Community Acquired Pneumonia. Patient primary complaint is of back pain now. Appears to be under control with the Dilaudid. Remains on Ceftriaxone and Azithromycin for antibiotic treatment. Thank you for allowing me to participate in the care of the patient, we will follow with you.
[2016-06-06 17:09] VITALS: O2SAT 97
--- NOTE | 2016-06-06 18:05 | PN ---
DATE: 06/06/2016 REFERRING PHYSICIAN: Dr. Echeverria. SUBJECTIVE: He is lying in the bed. Nursing staff at bedside . Night was unremarkable. Feels better. Decreased cough, decreased shortness of breath. No nausea, vomiting or diarrhea. No leg pa in or leg swelling. OBJECTIVE: GENERAL: In no acute distress. VITAL SIGNS: Temperature is 98, heart rate , respiratory rate is 20, blood pressure 125/75, pul se ox 97%. HEENT: Moist mucous membranes. Crowded airway. Mallampati score is 4. NECK: Supple. No JVD. LUNGS: Has a prolonged expiratory phase. HEART: S1 and S2. ABDOMEN: Soft, nontender. No organomegaly. EXTREMITIES: No edema. NEUROLOGIC: Awake, alert, follows simple commands. MEDICATIONS: He is on Cepacol lozenges q.12 hours p.r.n., Dilaudid 0.5 mg IV q.6 hours p.r.n., DuoNe b q.6 hours, Nicoderm patch daily, Pepcid 40 mg daily, Percocet 5/325 one tab q.12 hours p.r.n., prom ethazine DM 5 mL q.8 hours p.r.n., Rocephin 1 g IV daily, Solu-Medrol 20 mg q.12 hours, Tylenol on a p.r.n. basis, Ultram 50 mg 3 times a day p.r.n., Zestril 10 mg daily, Zithromax 500 mg daily. LABORATORY DATA: Shows hemoglobin 13.9, hematocrit 40.7, WBC 10.3, platelet is 201. Sodium 136, pot assium 4.8, chloride 101, bicarbonate 27, BUN 15, creatinine 1.3, glucose 167, calcium is 9.0, AST 37 , ALT 37, alkaline phosphatase is 76, albumin is 3.8. Influenza A and B have been negative. Blood c ultures, so far there is no growth. Had a CT scan of the lumbar spine done yesterday, shows multilev el degenerative spondylitis most notably affecting the L4-L5 and L3-L4 level, mild congenital canal n arrowing. Repeat chest x-ray done yesterday shows no infiltrate or effusion. IMPRESSION AND PLAN: Community acquired pneumonia, improved, chronic obstructive lung disease, hyper tension, obesity, may have sleep apnea syndrome. I spoke to the patient and . The patient has l oud snoring, multiple choking events at nighttime, daytime sleepy and tired, will need attended sleep study as an outpatient. Pulmonary point of view he is much improved. We will discontinue Solu-Medr ol, and placed on prednisone 20 mg 4 to 5 days. The patient is urged to stop smoking. He will also need PFT as an outpatient. Thank you and will follow with you. Brianne Savage MD cc: [id number] TT: 06/06/2016 18:04:52 Confirmation # [id number] Dictation # [id number]
--- NOTE | 2016-06-07 00:57 | PN ---
DATE: 06/06/2016 SUBJECTIVE: The patient is a 56-year-old male. The patient seen and examined at the bedside, looks comfortable. No nausea, vomiting, or diarrhea. No hematuria or hematochezia. No swelling of the leg. No chest pain or palpitation. Complaining about severe back pain and went for CT scan of the back, which was reviewed. Cough is getting better. Shortness of breath is getting better. Still bringing up heavy phlegm. PHYSICAL EXAMINATION: VITAL SIGNS: Temperature 98, heart rate 80, respiratory rate 20, blood pressure 145/75. HEENT: Head normocephalic, atraumatic. Eyes: PERRLA, extraocular muscles are intact, conjunctivae pink. Eyelids: Unremarkable. Nose: Patent. Mucous membranes: Moist. NECK: Supple. No carotid bruit or thyromegaly. CHEST: Bilaterally symmetrical. HEART: S1, S2 positive. LUNGS: Positive wheezing bilaterally. ABDOMEN: Soft. Bowel sounds present. No organomegaly. EXTREMITIES: No edema, no cyanosis. NEUROLOGIC: The patient is awake, alert, follows simple commands. MEDICATIONS: Dilaudid, DuoNeb, Nicoderm patch, Pepcid, Percocet, promethazine, Rocephin, Solu-Medrol, Tylenol, tramadol, Zestril, Zithromax. LABORATORY DATA: Hemoglobin 3.9. Hematocrit 40.7, white blood cells 10.3, platelets 201. Sodium 136, potassium 4.8, BUN 15, creatinine 1.3. AST 37, ALT 27, albumin 3.8. Influenza A and B is negative. Blood culture so far is no growth. ASSESSMENT AND PLAN: The patient is a 56-year-old male with community-acquired pneumonia; improved, chronic obstructive lung disease, hypertension, obesity, sleep apnea syndrome, history of bilateral knee surgery, degenerative joint disease, multiple choking events at night, daytime sleepiness and tired. Needs a sleep study as outpatient. He went for CT scan of lumbar spine x-ray and shows multilevel degenerative joint disease, spondylitis; mostly affecting L4-L5 , L3-L4, mild congenital canal narrowing. Chest x-ray done yesterday shows no infiltrates or effusion. I reviewed Dr. Savage's notes. I reviewed Dr. Reyes's notes also. I urged him to stop smoking. According to him, tramadol is not helping. I gave Percocet 2 times a day p.r.n., and will been discussed with Dr. Reyes and if it is okay to convert IV antibiotics to p.o. We will discharge home tomorrow. We will follow up. Irma Echeverria MD cc: [id number] TT: 06/07/2016 00:56:47 Confirmation # [id number] Dictation # [id number] [facility]TDD
[2016-06-07] MEDS: Albuterol-Ipratrop 3 mg / 0.5 (3 ml) UD IH SCH ×3 (01:19→14:02)
[2016-06-07] MEDS: Promethazine DM 6.25 mg-15 mg/5 ml Syrup PO PRN ×2 (02:17→11:00)
[2016-06-07] MEDS: HYDROmorphone 0.5 mg/0.5 ml ISec IVP PRN (02:17)
[2016-06-07] MEDS: Azithromycin 500MG/NS 250ml 250 ML IVPB SCH (10:56)
[2016-06-07] MEDS: cefTRIAXone 1 gm 100 ML IVPB SCH (10:57)
[2016-06-07 11:01] VITALS: BP 138/84
[2016-06-07 11:39] VITALS: PULSE 52; RESP 20; TEMP 98.6
--- NOTE | 2016-06-07 14:30 | CP.PCM.PN ---
Subjective - Date & Time of Evaluation Date of Evaluation: 06/07/16 Time of Evaluation: 12:30 - Subjective Subjective: Infectious Disease Follow Up: June 07, 2016 56 yo AA male with presentation of SOB and worsening cough. Subjective fevers and chills at home. He complains of lower chest and back pain. Chest X-ray is displaying pneumonic process in the bilateral lower lobes. He is ambulatory. He is an active tobacco user at 1 PPD. His temperatures have been as high as 103.6 F. He does state that he feels better since hospitalized but his major complaints are based around low back pains. Unclear to me if this is secondary to a chronic low back pain versus the current pneumonia. He appears to have less SOB compared to yesterday. The patient complains of low back pain. Objective - Vital Signs/Intake and Output Vital Signs (last 24 hours): Temp Pulse Resp BP Pulse Ox 98.6 F 52 L 20 138/84 97 06/07/16 11:38 06/07/16 11:38 06/07/16 11:38 06/07/16 11:38 06/07/16 06:00 Intake and Output: 06/07/16 06/07/16 06:59 18:59 Intake Total 1620 Output Total 1500 Balance 120 - Medications Medications: Current Medications Acetaminophen (Tylenol 325mg Tab) 650 mg PO Q4H PRN PRN Reason: fever Last Admin: 06/06/16 12:42 Dose: 650 mg Acetaminophen (Tylenol 325mg Tab) 650 mg PO Q4H PRN PRN Reason: Pain, Mild (1-3) Last Admin: 06/04/16 22:05 Dose: 650 mg Albuterol/Ipratropium (Duoneb 3 Mg/0.5 Mg (3 Ml) Ud) 3 ml IH [id number] ALEX Last Admin: 06/07/16 14:02 Dose: Not Given Benzocaine/Menthol (Cepacol Sore Throat) 1 rashel MT Q2H PRN PRN Reason: Sore Throat Famotidine (Pepcid) 40 mg PO HS [facility] Last Admin: 06/06/16 21:42 Dose: 40 mg Hydromorphone HCl (Dilaudid) 0.5 mg IVP Q6H PRN PRN Reason: Pain, moderate (4-7) Last Admin: 06/07/16 02:17 Dose: 0.5 mg Ceftriaxone Sodium (Rocephin 1 Gram Ivpb) 100 mls @ 100 mls/hr IVPB DAILY [facility] PRN Reason: Protocol Last Admin: 06/07/16 10:57 Dose: 100 mls/hr Azithromycin (Zithromax 500mg In Ns) 250 mls @ 167 mls/hr IVPB DAILY [facility] PRN Reason: Protocol Last Admin: 06/07/16 10:56 Dose: 167 mls/hr Lisinopril (Zestril) 10 mg PO DAILY [facility] Last Admin: 06/07/16 10:58 Dose: 10 mg Nicotine (Nicoderm Cq) 1 patch TD DAILY [facility] Last Admin: 06/07/16 10:56 Dose: 1 patch Oxycodone/Acetaminophen (Percocet 5/325 Mg Tab) 1 tab PO BID PRN PRN Reason: Pain, moderate (4-7) Stop: 06/09/16 14:37 Last Admin: 06/06/16 16:49 Dose: 1 tab Prednisone (Prednisone Tab) 10 mg PO DAILY [facility] Last Admin: 06/07/16 10:57 Dose: 10 mg Promethazine HCl/Dextromethorphan (Phenergan Dm Syrup) 5 ml PO TID PRN PRN Reason: Cough Last Admin: 06/07/16 11:00 Dose: 5 ml Tramadol HCl (Ultram) 50 mg PO TID PRN PRN Reason: Pain, moderate (4-7) Last Admin: 06/06/16 09:16 Dose: 50 mg - Labs Labs: 06/06/16 07:41 06/06/16 07:41 - Constitutional Appears: Non-toxic, No Acute Distress, Chronically Ill - Head Exam Head Exam: ATRAUMATIC, NORMOCEPHALIC - Eye Exam Eye Exam: EOMI, PERRL Pupil Exam: NORMAL ACCOMODATION, PERRL - ENT Exam ENT Exam: Mucous Membranes Moist, Normal External Ear Exam, TM's Normal Bilaterally - Neck Exam Neck Exam: Full ROM, Normal Inspection - Respiratory Exam Respiratory Exam: Clear to Ausculation Bilateral, NORMAL BREATHING PATTERN. absent: Rales, Rhonchi, Wheezes - Cardiovascular Exam Cardiovascular Exam: REGULAR RHYTHM, RRR, +S1, +S2 - GI/Abdominal Exam GI & Abdominal Exam: Soft, Normal Bowel Sounds. absent: Distended, Tenderness - Extremities Exam Extremities Exam: Full ROM, Normal Inspection - Neurological Exam Neurological Exam: Alert, Awake, CN II-XII Intact, Oriented x3 - Psychiatric Exam Psychiatric exam: Normal Affect, Normal Mood - Skin Skin Exam: Intact, Normal Color Assessment and Plan - Assessment and Plan (Free Text) Assessment: 56 yo AA male with cough and high grade fevers started on Rocephin and Azithromycin for antibiotic treatment. The patient has signs of pneumonia in the bases bilaterally. He is complaining of lower chest pain and mid level back pain especially after fits of coughing. The patient had cultures sent. Would sent sputum cultures as well. Afebrile today. Continuing treatment for Community Acquired Pneumonia. Patient primary complaint is of back pain now. Appears to be under control with the Dilaudid. Remains on Ceftriaxone and Azithromycin for antibiotic treatment. From ID perspective, patient is cleared for discharged. He can given 5 more days of Azithromycin 500mg daily and Keflex 500mg PO BID. Thank you for allowing me to participate in the care of the patient, we will follow with you.
--- NOTE | 2016-06-07 15:55 | PN ---
DATE: 06/07/2016 REFERRING PHYSICIAN: Dr. Echeverria. SUBJECTIVE: The patient is out of bed to chair, being discharged home. Night was unremarkable, othe r than he had a sleep related bradycardia, heart rate dropped down to 30s, had loud snoring, daytime sleepy and tired, breathing is better. Cough is better. No nausea, no vomiting, diarrhea. No leg p ain or leg swelling. OBJECTIVE: GENERAL: No acute distress. VITAL SIGNS: Temperature is 98, heart rate is 52, respiratory rate is 20, blood pressure 138/84, pul se ox 97% on room air. HEENT: Moist mucous membranes. Crowded airway. Mallampati score is 4. NECK: Supple. No JVD. LUNGS: Has a fair airflow with few rhonchi. HEART: S1 and S2. ABDOMEN: Soft, nontender. No organomegaly. EXTREMITIES: There is no edema. NEUROLOGIC: Awake, alert, follows simple commands. MEDICATIONS: He is on Cepacol lozenges q. 12 hours p.r.n., Dilaudid 0.5 mg q. 6 hours p.r.n., DuoNeb q. 6 hours p.r.n., Nicoderm patch daily, Pepcid 40 mg daily, Percocet 5/325 one tab q. 12 hours p.r. n., 5 mL 3 times a day p.r.n., Rocephin 1 g daily, Solu-Medrol 20 mg q. 12 hours, Tylenol on a p.r.n. basis, Ultram p.r.n. basis, Zestril 10 mg daily, Zithromax 500 mg daily. LABORATORY DATA: Reviewed. No new lab is available since yesterday. Microbiology: Blood cultures have been negative. IMPRESSION AND PLAN: Community-acquired pneumonia, improved, chronic obstructive lung disease, hyper tension, obesity, may have sleep apnea syndrome. Case discussed with Dr. Echeverria. He will be dischar ged home on tapered dose of steroids and also on prednisone. The patient should stop smoking. We wi ll schedule a tentative sleep study for sleep-related bradycardia, heart rate down to 30s, daytime sl eepiness. Also, need PFT. Brianne Savage MD cc: [facility] [place] TT: 06/07/2016 15:54:20 Confirmation # [id number] Dictation # [id number] dn
--- NOTE | 2016-06-09 11:00 | DS ---
CHIEF COMPLAINT: Shortness of breath and coughing. HISTORY OF PRESENT ILLNESS: The patient is a 56-year-old private patient of Dr. Gustavo Trevizo who came into the Emergency Room complaining about coughing for past 2 days. The patient noticed clear phlegm. The patient complained of chest pain with coughing and subjective feverish feeling at home. No nausea, vomiting, or diarrhea. No headache, no dizziness, no fever, no chills but we admitted the patient. Did chest x-ray and lumbar spine CT. Seen by Dr. Savage (communications station manager), Dr. Reyes (infectious disease). Antibiotics, steroids and Percocet given. The patient got better. Sent home on 06/07/2016 with followup as outpatient with primary care physician, with a sleep specialist because at night his heart rate was dropping and, according to him, he is having snoring and stopping his breathing at night and daytime he is sleepy. Prescription of medications given, double antibiotics and Medrol Dosepak. PAST MEDICAL HISTORY: Arthritis, fall, bilateral knee replacement, left shoulder replacement. FAMILY HISTORY: Father and mother noncontributory. HABITS: Heavy smoking, 1 pack per day. Alcohol: Yes. Substance abuse: No. ALLERGIES: THE PATIENT IS ALLERGIC WITH PORK. REVIEW OF SYSTEMS: The patient seen and examined on the bedside. Looks comfortable. Excited to go home. No fever, no chills. No nausea, vomiting, or diarrhea. No hematuria or hematochezia. No swelling of the legs. No chest pain, no palpitation. PHYSICAL EXAMINATION: VITAL SIGNS: Temperature 98, heart rate 52, respiratory rate 20, blood pressure 120/84, pulse oximetry 97% on room air. HEENT: Head normocephalic, atraumatic. Eyes: PERRLA. Extraocular muscles intact. Conjunctivae pink. Eyelids unremarkable. Nose patent. Mucous membranes moist. NECK: Supple. No carotid bruit, JVD or thyromegaly. CHEST: Bilaterally symmetrical. HEART: S1, S2 positive. ABDOMEN: Soft, nontender. No organomegaly. EXTREMITIES: No edema, no cyanosis. NEUROLOGIC: The patient is awake, alert, follows simple commands. MEDICATIONS: Cepacol lozenges, Dilaudid, DuoNeb, Nicoderm patch, Pepcid, Percocet. The patient got Rocephin in the hospital but discharged on Augmentin and Zithromax. Solu-Medrol he got in the hospital but discharge on Medrol Dosepak. Tylenol, tramadol, Zestril, Zithromax. LABORATORY DATA: White blood cells 10.3, hemoglobin 13.9, hematocrit 40.7, platelets 201. Sodium 136, potassium 4.8, BUN 15, creatinine 1.3, glucose 157. ASSESSMENT AND PLAN: The patient is a 56-year-old male with history of leukocytosis (improved), hyponatremia (improved), hyperglycemia. Influenza type A and B were negative. Came with community-acquired pneumonia (improved), chronic obstructive lung disease, hypertension, obesity; sleep apnea syndrome, and according to nursing staff, the patient's heart rate is dropping into the 30s. The patient sent home with tapering dose of steroids, Zithromax and Augmentin. Urged to quit smoking; gave a prescription of Nicoderm patch. The patient was scheduled for sleep study, especially sleep related bradycardia, heart rate in the 30s, daytime sleepiness. Gastrointestinal and deep venous thrombosis prophylaxis. Will follow up. Irma Echeverria MD cc: [id number] TT: 06/09/2016 08:21:56 donn MTZ
== END 2016-06-07 15:18 | disposition home or self-care (01) | DRG 194 ==
LOC: ED 17:45 → ERH 20:12 → 2RSO 23:15
PROVIDERS: ADMIT Internal Medicine; ATTEND Internal Medicine
DX: J18.9 Pneumonia, unspecified organism (principal); J44.0 Chronic obstructive pulmonary disease with (acute) lower respiratory infection; E87.8 Other disorders of electrolyte and fluid balance, not elsewhere classified; E87.1 Hypo-osmolality and hyponatremia; G47.33 Obstructive sleep apnea (adult) (pediatric); I10 Essential (primary) hypertension; R73.9 Hyperglycemia, unspecified; E66.9 Obesity, unspecified; M19.90 Unspecified osteoarthritis, unspecified site; F17.210 Nicotine dependence, cigarettes, uncomplicated; M46.96 Unspecified inflammatory spondylopathy, lumbar region; Z96.612 Presence of left artificial shoulder joint; Z96.653 Presence of artificial knee joint, bilateral; R40.2412 Glasgow coma scale score 13-15, at arrival to emergency department; Z91.018 Allergy to other foods; G89.29 Other chronic pain; M54.5 Low back pain; R00.1 Bradycardia, unspecified

== ENCOUNTER 2016-08-10 00:27 | Emergency (ER) | payer BC ==
[2016-08-10 01:07] VITALS: BMI 33.0
[2016-08-10 01:08] VITALS: BP 143/80; PULSE 75; RESP 17; TEMP 98.7; O2SAT 95
--- NOTE | 2016-08-10 01:19 | ED PDOC ---
Arrival/HPI - General Time Seen by Provider: 08/10/16 01:05 Historian: Patient - History of Present Illness Narrative History of Present Illness (Text): 08/10/16 01:19 Jose Cruz Dey is a 56 year old male who presents to the Emergency department complaining of a sore throat for the past 2 days. Patient reports associated cold-like symptoms. Patient denies any fever, chills, chest pain, shortness of breath, nausea, vomiting, diarrhea, neck pain, headache, dizziness, or any other complaints. Time/Duration: < week (2 days) Symptom Onset: Gradual Symptom Course: Unchanged Activities at Onset: Rest, Light Context: Home Past Medical History - Provider Review Nursing Documentation Reviewed: Yes - Past History Past History: No Previous - Infectious Disease Hx of Infectious Diseases: None - Tetanus Immunization Tetanus Immunization: Unknown - Cardiac Hx Cardiac Disorders: No - Pulmonary Hx Respiratory Disorders: No - Neurological Hx Neurological Disorder: No - HEENT Hx HEENT Disorder: No - Renal Hx Renal Disorder: No - Endocrine/Metabolic Hx Endocrine Disorders: No - Hematological/Oncological Hx Blood Disorders: No - Integumentary Hx Dermatological Disorder: No - Musculoskeletal/Rheumatological Hx Arthritis: Yes - Gastrointestinal Hx Gastrointestinal Disorders: No - Genitourinary/Gynecological Hx Genitourinary Disorders: No - Psychiatric Hx Psychophysiologic Disorder: No Hx Substance Use: No - Past Surgical History Past Surgical History: Non-Contributing - Surgical History Other/Comment: Bilateral knee replacement. L shoulder - Anesthesia Hx Anesthesia: Yes Hx Anesthesia Reactions: No Hx Malignant Hyperthermia: No - Suicidal Assessment Feels Threatened In Home Enviroment: No Family/Social History - Physician Review Nursing Documentation Reviewed: Yes Family/Social History: Unknown Family HX Smoking Status: Heavy Smoker > 10 Cigarettes Daily Hx Alcohol Use: Yes Hx Substance Use: No Hx Substance Use Treatment: No Allergies/Home Meds Allergies/Adverse Reactions: Allergies PORK Allergy (Verified 12/29/15 16:54) NAUSEA Review of Systems - Physician Review All systems were reviewed & negative as marked: Yes - Review of Systems Constitutional: Normal. absent: Fevers Eyes: Normal ENT: Sore Throat, Other (+cold-like symptoms) Respiratory: Normal. absent: SOB, Cough Cardiovascular: Normal. absent: Chest Pain Gastrointestinal: Normal. absent: Abdominal Pain, Diarrhea, Vomiting Genitourinary Male: Normal. absent: Dysuria, Frequency, Hematuria, Urinary Output Changes Musculoskeletal: Normal. absent: Back Pain, Neck Pain Skin: Normal. absent: Rash Neurological: Normal. absent: Headache, Dizziness Endocrine: Normal Hemo/Lymphatic: Normal Psychiatric: Normal Physical Exam Vital Signs Reviewed: Yes Vital Signs Temp Pulse Resp BP Pulse Ox 08/10/16 01:07 98.7 F 75 17 143/80 95 Temperature: Afebrile Blood Pressure: Normal Pulse: Regular Respiratory Rate: Normal Appearance: Positive for: Well-Appearing, Non-Toxic, Comfortable Pain Distress: None Mental Status: Positive for: Alert and Oriented X 3 - Systems Exam Head: Present: Atraumatic, Normocephalic Pupils: Present: PERRL Extroacular Muscles: Present: EOMI Conjunctiva: Present: Normal Ears: Present: Normal, NORMAL TM, Normal Canal. No: Erythema, TM Bulging, Fluid , TM Perf Mouth: Present: Moist Mucous Membranes Pharnyx: Present: ERYTHEMA (Erythema to posterior pharynx). No: EXUDATE, TONSILS ENLARGED, Peritonsilar Swelling, Uvular Deviation, Muffled/Hoarse Voice , Strider, Soft Palate/Uvular Edema Nose (External): Present: Atraumatic Nose (Internal): Present: Normal Inspection Neck: Present: Normal Range of Motion Respiratory/Chest: Present: Clear to Auscultation, Good Air Exchange. No: Respiratory Distress, Accessory Muscle Use Cardiovascular: Present: Regular Rate and Rhythm, Normal S1, S2. No: Murmurs Abdomen: Present: Normal Bowel Sounds. No: Tenderness, Distention, Peritoneal Signs Back: Present: Normal Inspection Upper Extremity: Present: Normal Inspection. No: Cyanosis, Edema Lower Extremity: Present: Normal Inspection. No: Edema Neurological: Present: GCS=15, CN II-XII Intact, Speech Normal Skin: Present: Warm, Dry, Normal Color. No: Rashes Psychiatric: Present: Alert, Oriented x 3, Normal Insight, Normal Concentration Medical Decision Making ED Course and Treatment: 08/10/16 01:19 Impression: 56 year old male complaining of sore throat and cold-like symptoms. Differential Diagnosis include but are not limited to: pharyngitis vs. URI vs. laryngitis Plan: -- Amoxil -- Decadron -- Reassess and disposition Progress Notes: 08/10/16 02:30 On re-evaluation, the patient feels better and is in no acute distress. I have discussed the results and plan with the patient, who expresses understanding. Patient in agreement with plan to discharged home. Patient is stable for discharge. Patient was instructed to follow up with physician/clinic in 1-2 days or return if symptoms worsen or new concerning symptoms arise. - Medication Orders Current Medication Orders: Discontinued Medications Amoxicillin (Amoxil 500 Mg Cap) 500 mg PO STAT STA PRN Reason: Protocol Stop: 08/10/16 01:32 Last Admin: 08/10/16 02:41 Dose: 500 mg Dexamethasone (Decadron Inj) 10 mg IM ONCE ONE Stop: 08/10/16 01:32 Last Admin: 08/10/16 02:42 Dose: 10 mg - Scribe Statement The provider has reviewed the documentation as recorded by the Raul Rowley All medical record entries made by the Raul were at my direction and personally dictated by me. I have reviewed the chart and agree that the record accurately reflects my personal performance of the history, physical exam, medical decision making, and the department course for this patient. I have also personally directed, reviewed, and agree with the discharge instructions and disposition. Disposition/Present on Arrival - Present on Arrival Any Indicators Present on Arrival: No History of DVT/PE: No History of Uncontrolled Diabetes: No Urinary Catheter: No History Surgical Site Infection Following: None - Disposition Have Diagnosis and Disposition been Completed?: Yes Diagnosis: Pharyngitis Disposition: HOME/ ROUTINE Disposition Time: 02:30 Patient Plan: Discharge Patient Problems: Current Active Problems Problem Status Onset Pharyngitis Acute Condition: GOOD Discharge Instructions (ExitCare): Pharyngitis (ED) Additional Instructions: Take meds as prescribed/drink cool liquids/follow up with your doctor this week Prescriptions: Amoxicillin [Amoxil 500 mg Cap] 500 mg PO TID #30 cap guaiFENesin [Robitussin] 100 mg PO Q6 PRN #5 oz PRN Reason: Cough
== END 2016-08-10 02:59 | disposition home or self-care (01) ==
LOC: ED 00:27
DX: J02.9 Acute pharyngitis, unspecified (principal); F17.210 Nicotine dependence, cigarettes, uncomplicated
CPT/HCPCS: 96372; 99282; J1100